=== PATIENT | male | born 1955 | race Asian ===

== ENCOUNTER 2019-12-09 06:01 | Day surgery (SDC) | payer OTHER ==
[~2019-12-09] VITALS: Ht 170.2 cm; Wt 65.5 kg
[~2019-12-09 06:01] MED LIST: SODIUM CHLORIDE 0.9% 1,000 ML ONE
[2019-12-09] MEDS ORDERED: ALBUTEROL SULFATE 2.5 MG/0.5 ML NEB SOLUTION NEB ONE (06:02)
[2019-12-09] MEDS ORDERED: BENZOCAINE 20% 50 MCG/SPRAY 57 GM TP ONE (06:02)
[2019-12-09] MEDS ORDERED: LIDOCAINE 4% 50 ML SOLUTION TP ONE (06:02)
[2019-12-09] MEDS ORDERED: LIDOCAINE 2% 30 ML JELLY TP ONE (06:02)
[2019-12-09] MEDS ORDERED: SODIUM CHLORIDE 0.9% 1,000 ML IV ONE (07:00)
[2019-12-09] MEDS ORDERED: PRED5 PO (07:08)
[2019-12-09] MEDS ORDERED: LOSA50TA37 PO (07:08)
[2019-12-09] MEDS ORDERED: DIPH25CA48 PO (07:08)
[2019-12-09] MEDS ORDERED: BENZ200C53 PO (07:08)
[2019-12-09] MEDS ORDERED: ATOR40TA28 PO (07:08)
[2019-12-09] MEDS ORDERED: P-EP-31 PO (07:08)
[2019-12-09] MEDS ORDERED: MONT10TA21 PO (07:08)
[2019-12-09] MEDS ORDERED: METO25 PO (07:08)
[2019-12-09] MEDS ORDERED: FentaNYL CITRATE-PF 100 MCG/2 ML VIAL ONE (07:45)
[2019-12-09] MEDS ORDERED: MIDAZOLAM HCL 2 MG/2 ML VIAL ONE (07:45)
[2019-12-09] MEDS ORDERED: MethylPREDNISolone SOD SUCC 125 MG/2 ML VIAL IVP ONE (09:00)
[2019-12-09] MEDS ORDERED: MethylPREDNISolone SOD SUCC 125 MG/2 ML VIAL ONE (09:33)
[2019-12-09] MEDS ORDERED: OXYGEN THERAPY IH SCH (20:00)
== END 2019-12-09 10:55 | disposition home or self-care (01) ==
LOC: SURGERY 06:01
PROVIDERS: ATTEND Internal Medicine Critical Care Medicine
DX: J38.4 Edema of larynx (principal); B37.0 Candidal stomatitis; F17.210 Nicotine dependence, cigarettes, uncomplicated; E78.00 Pure hypercholesterolemia, unspecified; Z98.890 Other specified postprocedural states
CPT/HCPCS: 31623; 31624; 71045; 87015; 87070; 87077; 87101; 87186; 87205; 87206; 87220; 88108; 88184; 88185; 88312; J2250; J2930; J3010; J7030

== ENCOUNTER 2021-06-17 05:58 | Day surgery (SDC) | payer OTHER ==
[~2021-06-17 05:58] MED LIST changes: +AMLO10TA55 PO; +ASPI-1444 PO; +CALC-26 PO; +CETI10TA58 PO; +DIPH-1080 PO; +FLUT220HFA IH; +GABA-1181 PO; +HYDR25TA84 PO; +LOSA50TA37 PO; +METO25XL PO; +MONT-35 PO; +OMEG-189 PO; +PRED5TAB2 PO; +ROSU40 PO; -SODIUM CHLORIDE 0.9% 1,000 ML ONE; +UMEC1DIS IH
[2021-06-17] MEDS ORDERED: LIDOCAINE 2% 30 ML JELLY TP ONE (05:59)
[2021-06-17] MEDS ORDERED: LIDOCAINE 4% 50 ML SOLUTION TP ONE (05:59)
[2021-06-17] MEDS ORDERED: BENZOCAINE 20% 50 MCG/SPRAY 57 GM TP ONE (05:59)
[2021-06-17] MEDS ORDERED: SODIUM CHLORIDE 0.9% 1,000 ML ONE (06:15)
[2021-06-17] MEDS ORDERED: SODIUM CHLORIDE 0.9% 1,000 ML IV ONE (06:30)
[2021-06-17 06:48] LABS: COVID AG,FIA SOURCE NASOPHARYNGEAL
[2021-06-17] MEDS ORDERED: MIDAZOLAM HCL 5 MG/ML VIAL ONE (07:35)
[2021-06-17] MEDS ORDERED: FentaNYL CITRATE PF 100 MCG/2 ML VIAL ONE (07:35)
[2021-06-17] MEDS ORDERED: HYDROCORTISONE SOD SUCC 100 MG/2 ML VIAL ONE (08:55)
[2021-06-17] MEDS ORDERED: MethylPREDNISolone SOD SUCC 125 MG/2 ML VIAL IVP ONE (09:00)
[2021-06-17] MEDS ORDERED: OXYGEN THERAPY IH SCH (20:00)
== END 2021-06-17 10:30 | disposition home or self-care (01) ==
LOC: SURGERY 05:58
PROVIDERS: ATTEND Internal Medicine Critical Care Medicine
DX: J38.4 Edema of larynx (principal); B37.0 Candidal stomatitis; Z98.890 Other specified postprocedural states; I10 Essential (primary) hypertension; Z79.82 Long term (current) use of aspirin; Z79.899 Other long term (current) drug therapy
CPT/HCPCS: 31623; 31624; 71045; 87015; 87070; 87077; 87101; 87186; 87205; 87206; 87220; 87426; 88108; 88312; C9803; J1720; J2250; J3010; J7030; Z7610

== ENCOUNTER 2023-05-15 06:59 | Day surgery (SDC) | payer OTHER ==
[~2023-05-15] VITALS: Ht 170.2 cm; Wt 73.6 kg
[~2023-05-15 06:59] MED LIST changes: +FLUT12AE18 IH; -FLUT220HFA IH; +LOSA-382 PO; -LOSA50TA37 PO; +SODIUM CHLORIDE 0.9% 0 ML ONE
[2023-05-15] MEDS ORDERED: SODIUM CHLORIDE 0.9% 1,000 ML IV ONE (07:00)
[2023-05-15] MEDS ORDERED: SODIUM CHLORIDE 0.9% 1,000 ML ONE (08:09)
[2023-05-15] MEDS ORDERED: FentaNYL CITRATE PF 100 MCG/2 ML VIAL ONE (08:15)
[2023-05-15] MEDS ORDERED: MIDAZOLAM HCL 2 MG/2 ML VIAL ONE (08:15)
[2023-05-15 09:40] VITALS: PULSE 62; RESP 12; O2SAT 100
[2023-05-15] MEDS ORDERED: MethylPREDNISolone SOD SUCC 125 MG/2 ML VIAL ONE (09:44)
[2023-05-15] MEDS ORDERED: MethylPREDNISolone SOD SUCC 125 MG/2 ML VIAL IVP ONE (09:45)
[2023-05-15] MEDS ORDERED: LIDOCAINE 2% 11 ML JELLY ONE (16:37)
[2023-05-15] MEDS ORDERED: ALBUTEROL SULFATE 2.5 MG/0.5 ML NEB SOLUTION NEB ONE (16:37)
[2023-05-15] MEDS ORDERED: BENZOCAINE 20% 50 MCG/SPRAY 57 GM ONE (16:37)
[2023-05-15] MEDS ORDERED: LIDOCAINE 4% 50 ML SOLUTION ONE (16:37)
== END 2023-05-15 11:45 | disposition home or self-care (01) ==
LOC: SURGERY 06:59
PROVIDERS: ATTEND Internal Medicine Critical Care Medicine
DX: J38.4 Edema of larynx (principal); B37.0 Candidal stomatitis; I10 Essential (primary) hypertension; Z98.890 Other specified postprocedural states; J45.909 Unspecified asthma, uncomplicated; Z79.82 Long term (current) use of aspirin; Z79.899 Other long term (current) drug therapy
CPT/HCPCS: 31623; 87206; 87101; 87220; 87070; 31624; 94640; 71045; 87015; J3010; J2250; J2930; Q9967; J7030; 88112; J7613; Z7610

== ENCOUNTER 2024-07-08 07:02 | Day surgery (SDC) | payer OTHER ==
[~2024-07-08] VITALS: Ht 170.2 cm; Wt 68.2 kg
[~2024-07-08 07:02] MED LIST changes: -DIPH-1080 PO; +DIPH-1237 PO; -OMEG-189 PO; +OMEG-237 PO; -SODIUM CHLORIDE 0.9% 0 ML ONE; +SODIUM CHLORIDE 0.9% 1,000 ML ONE
[2024-07-08] MEDS ORDERED: LIDOCAINE 2% 11 ML JELLY TP ONE (07:03)
[2024-07-08] MEDS ORDERED: ALBUTEROL SULFATE 2.5 MG/0.5 ML NEB SOLUTION NEB ONE (07:03)
[2024-07-08] MEDS ORDERED: LIDOCAINE 4% 50 ML SOLUTION TP ONE (07:03)
[2024-07-08] MEDS ORDERED: BENZOCAINE 20% 50 MCG/SPRAY 57 GM TP ONE (07:03)
[2024-07-08] MEDS: SODIUM CHLORIDE 0.9% 1,000 ML IV ONE (08:13)
[2024-07-08] MEDS ORDERED: FentaNYL CITRATE PF 100 MCG/2 ML VIAL ONE (08:49)
[2024-07-08] MEDS ORDERED: MIDAZOLAM HCL 2 MG/2 ML VIAL ONE (08:49)
[2024-07-08 09:34] VITALS: PULSE 74; RESP 17; O2SAT 100
[2024-07-08] MEDS ORDERED: MethylPREDNISolone SOD SUCC 125 MG/2 ML VIAL ONE (10:09)
[2024-07-08] MEDS: MethylPREDNISolone SOD SUCC 125 MG/2 ML VIAL IVP ONE (10:30)
== END 2024-07-08 14:00 | disposition home or self-care (01) ==
LOC: SURGERY 07:02
PROVIDERS: ATTEND Internal Medicine Critical Care Medicine
DX: R05.3 Chronic cough (principal); R06.2 Wheezing; R49.0 Dysphonia; R04.2 Hemoptysis; R91.1 Solitary pulmonary nodule; J38.4 Edema of larynx; B37.0 Candidal stomatitis; I10 Essential (primary) hypertension; E78.00 Pure hypercholesterolemia, unspecified; Z87.891 Personal history of nicotine dependence; Z79.82 Long term (current) use of aspirin; Z79.899 Other long term (current) drug therapy; Z98.890 Other specified postprocedural states
CPT/HCPCS: 31623; 87206; 87101; 87220; 87070; 88108; 87186; 31624; 94640; 71045; 87015; J3010; J2250; J2919; J7030; J7613; Z7610

== ENCOUNTER 2025-03-15 06:44 | Day surgery (SDC) | payer OTHER ==
[~2025-03-15] VITALS: Ht 170.2 cm; Wt 68.2 kg
[2025-03-15] MEDS: SODIUM CHLORIDE 0.9% 1,000 ML IV ONE (07:44)
[2025-03-15] MEDS ORDERED: FentaNYL CITRATE PF 100 MCG/2 ML VIAL ONE (08:43)
[2025-03-15] MEDS ORDERED: MIDAZOLAM HCL 2 MG/2 ML VIAL ONE (08:44)
[2025-03-15 08:55] VITALS: PULSE 58; RESP 14; O2SAT 100
[2025-03-15] MEDS ORDERED: MethylPREDNISolone SOD SUCC 125 MG/2 ML VIAL ONE (09:42)
[2025-03-15] MEDS: MethylPREDNISolone SOD SUCC 125 MG/2 ML VIAL IVP ONE (09:54)
[2025-03-15] MEDS ORDERED: LIDOCAINE 4% 50 ML SOLUTION ONE (12:00)
[2025-03-15] MEDS ORDERED: ALBUTEROL SULFATE 2.5 MG/0.5 ML NEB SOLUTION NEB ONE (12:00)
[2025-03-15] MEDS ORDERED: BENZOCAINE 20% 50 MCG/SPRAY 57 GM ONE (12:00)
[2025-03-15] MEDS ORDERED: LIDOCAINE 2% 11 ML JELLY ONE (12:00)
== END 2025-03-15 14:10 | disposition home or self-care (01) ==
LOC: SURGERY 06:44
PROVIDERS: ATTEND Internal Medicine Critical Care Medicine
DX: R91.8 Other nonspecific abnormal finding of lung field (principal); R05.3 Chronic cough; J38.4 Edema of larynx; J37.0 Chronic laryngitis; I10 Essential (primary) hypertension; Z79.899 Other long term (current) drug therapy
CPT/HCPCS: 31623; 87206; 87101; 87220; 87070; 88108; 31624; 71045; 87015; J3010; J2250; J2919; J7030; J7613; Z7610

== ENCOUNTER 2025-08-30 06:50 | Day surgery (SDC) | payer OTHER ==
[~2025-08-30] VITALS: Ht 170.2 cm; Wt 68.1 kg
[2025-08-30] MEDS: SODIUM CHLORIDE 0.9% 1,000 ML IV ONE (07:57)
[2025-08-30] MEDS ORDERED: FentaNYL CITRATE PF 100 MCG/2 ML VIAL ONE (08:14)
[2025-08-30] MEDS ORDERED: MIDAZOLAM HCL 2 MG/2 ML VIAL ONE (08:15)
[2025-08-30 09:52] VITALS: PULSE 51; RESP 19; O2SAT 100
[2025-08-30] MEDS ORDERED: ALBUTEROL SULFATE 2.5 MG/0.5 ML NEB SOLUTION NEB ONE (12:00)
[2025-08-30] MEDS ORDERED: LIDOCAINE 4% 50 ML SOLUTION ONE (12:00)
[2025-08-30] MEDS ORDERED: LIDOCAINE 2% 11 ML JELLY ONE (12:00)
[2025-08-30] MEDS ORDERED: BENZOCAINE 20% 50 MCG/SPRAY 57 GM ONE (12:00)
== END 2025-08-30 15:10 | disposition left against medical advice (07) ==
LOC: SURGERY 06:50
PROVIDERS: ATTEND Internal Medicine Critical Care Medicine
DX: J38.4 Edema of larynx (principal); B37.0 Candidal stomatitis; R05.3 Chronic cough; R06.2 Wheezing; R04.2 Hemoptysis; R91.8 Other nonspecific abnormal finding of lung field; E78.00 Pure hypercholesterolemia, unspecified; I10 Essential (primary) hypertension; Z79.82 Long term (current) use of aspirin
CPT/HCPCS: 31623; 87206; 87101; 87220; 87070; 88108; 31624; 71045; 87015; J3010; J2250; J2919; J7030; 87186; J7613; Z7610